=== PATIENT | male | born 1965 | race Caucasian/White ===

== ENCOUNTER 2018-12-01 13:35 | Inpatient (IN) | payer MEDICARE ==
[~2018-12-01] VITALS: Ht 172.7 cm; Wt 65.8 kg
[2018-12-01] MEDS ORDERED: INSU100V28 SQ (14:12)
[2018-12-01] MEDS ORDERED: NITR0.4T48 SL (14:12)
[2018-12-01] MEDS ORDERED: BISA10SU12 RC (14:12)
[2018-12-01] MEDS ORDERED: ARIP5TAB10 PO (14:12)
[2018-12-01] MEDS ORDERED: MAGN400O6 PO (14:12)
[2018-12-01] MEDS ORDERED: ZINC220C8 PO (14:12)
[2018-12-01] MEDS ORDERED: HYDR-3326 PO (14:12)
[2018-12-01] MEDS ORDERED: MULT-213 PO (14:12)
[2018-12-01] MEDS ORDERED: GLIP5TAB13 PO (14:12)
[2018-12-01] MEDS ORDERED: DICLOFENAC 1% GEL TOP (14:12)
[2018-12-01] MEDS ORDERED: PROT946L PO (14:12)
[2018-12-01] MEDS ORDERED: ASCO500C18 PO (14:12)
[2018-12-01] MEDS ORDERED: NA P133E RC (14:12)
[2018-12-01] MEDS ORDERED: ASPI81TA31 PO (14:12)
[2018-12-01] MEDS ORDERED: CARV6.252 PO (14:12)
[2018-12-01] MEDS ORDERED: ATOR40TA PO (14:12)
[2018-12-01 14:44] LABS: BASOPHILS # (AUTO) 0.1 K/uL (0.0-8.0); BASOPHILS % (AUTO) 0.5 % (0.0-2.0); EOSINOPHILS # (AUTO) 0.2 K/uL (0.0-0.7); EOSINOPHILS % (AUTO) 1.8 % (0.0-7.0); HEMOGLOBIN 14.2 g/dL (12.5-16.3); LYMPHOCYTES # (AUTO) 3.1 K/uL (20.0-40.0); LYMPHOCYTES % (AUTO) 29.1 % (20.5-51.5); MEAN CORPUSCULAR HEMOGLOBIN 29.9 uug (23.8-33.4); MEAN CORPUSCULAR HGB CONC 34 g/dL (32.5-36.3); MEAN CORPUSCULAR VOLUME 88.3 fL (73.0-96.2); MONOCYTES # (AUTO) 0.7 K/uL (2.0-10.0); MONOCYTES % (AUTO) 6.4 % (0.0-11.0); NEUTROPHILS # (AUTO) 6.6 K/uL (1.8-8.9); NEUTROPHILS % (AUTO) 62.2 % (38.5-71.5); PLATELET COUNT (AUTO) 192 K/uL (152-348); RED BLOOD CELL COUNT(AUTO) 4.76 MIL/uL (4.06-5.63); WHITE BLOOD COUNT (AUTO) 10.6 K/uL (3.6-10.2)
[2018-12-01 14:52] LABS: POTASSIUM 3.6 mmol/L (3.5-5.1)
[2018-12-01] MEDS ORDERED: BISACODYL 10 MG SUPP.RECT RC PRN (16:00)
[2018-12-01] MEDS ORDERED: ACETAMINOPHEN 325 MG TABLET PO PRN (16:00)
[2018-12-01] MEDS ORDERED: Z GUARD REMEDY PASTE 57 GM TUBE TOP PRN (16:00)
[2018-12-01] MEDS ORDERED: FLEET ENEMA 133 ML BOTTLE RC PRN (16:00)
[2018-12-01] MEDS ORDERED: MAGNESIUM HYDROXIDE 30 ML LIQUID UDC PO PRN (16:00)
[2018-12-01] MEDS ORDERED: NITROGLYCERIN 0.4 MG/TAB BOTTLE SL PRN (16:00)
[2018-12-01] MEDS ORDERED: HYDROCODONE/APAP 5-325MG TABLET PO PRN (16:00)
[2018-12-01 18:00] VITALS: BP 142/69
[2018-12-01] MEDS: glipiZIDE 5 MG TABLET PO SCH (18:19)
[2018-12-01] MEDS: CARVEDILOL 6.25 MG TABLET PO SCH (18:22)
[2018-12-01] MEDS: PROTEIN SUPPLEMENT (PROSTAT) 30 ML LIQUID PO SCH (18:24)
[2018-12-01 19:28] VITALS: BP 140/58
[2018-12-01] MEDS: ATORVASTATIN 40 MG TABLET PO SCH (20:55)
[2018-12-02] VITALS (9 sets, daily range): BP systolic 126–150; BP diastolic 58–82
[2018-12-02] MEDS: HYDROCODONE/APAP 5-325MG TABLET PO PRN ×3 (01:45→17:09)
[2018-12-02 06:31] LABS: BASOPHILS % (AUTO) 0.5 % (0.0-2.0); EOSINOPHILS # (AUTO) 0.3 K/uL (0.0-0.7); EOSINOPHILS % (AUTO) 3.1 % (0.0-7.0); HEMATOCRIT 43.5 % (36.7-47.1); HEMOGLOBIN 14.5 g/dL (12.5-16.3); LYMPHOCYTES # (AUTO) 3.8 K/uL (20.0-40.0); LYMPHOCYTES % (AUTO) 40.3 % (20.5-51.5); MEAN CORPUSCULAR HEMOGLOBIN 29.5 uug (23.8-33.4); MEAN CORPUSCULAR HGB CONC 33 g/dL (32.5-36.3); MEAN CORPUSCULAR VOLUME 88.5 fL (73.0-96.2); MONOCYTES # (AUTO) 0.8 K/uL (2.0-10.0); NEUTROPHILS # (AUTO) 4.6 K/uL (1.8-8.9); NEUTROPHILS % (AUTO) 48.1 % (38.5-71.5); PLATELET COUNT (AUTO) 172 K/uL (152-348); RED BLOOD CELL COUNT(AUTO) 4.92 MIL/uL (4.06-5.63); WHITE BLOOD COUNT (AUTO) 9.5 K/uL (3.6-10.2)
[2018-12-02 06:44] LABS: CREATININE 0.9 mg/dL (0.6-1.3); MAGNESIUM 1.7 mg/dL (1.8-2.4); PHOSPHOROUS 4.2 mg/dL (2.5-4.9); POTASSIUM 3.4 mmol/L (3.5-5.1)
[2018-12-02] MEDS ORDERED: LIDOCAINE HCL 1% 20 ML VIAL ONE (06:58)
[2018-12-02 07:12] LABS: THYROID STIMULATING HORMONE 1.082 mIU/mL (0.358-3.740)
[2018-12-02] MEDS ORDERED: POLYMYXIN B SULFATE 500,000 UNITS, BACITRACIN 50,000 UNITS, NORMAL SALINE 20 ML MC ONE ×3 (07:15)
[2018-12-02] MEDS ORDERED: BUPIVACAINE 0.25% 30 ML VIAL ONE (07:28)
[2018-12-02] MEDS ORDERED: IV NORMAL SALINE 1000 ML BAG IV ONE (07:30)
[2018-12-02] MEDS ORDERED: PROPOFOL 200 MG/20 ML BOTTLE IV ONE (07:30)
[2018-12-02] MEDS ORDERED: LIDOCAINE-MPF 2% 5 ML VIAL MC ONE (07:30)
[2018-12-02] MEDS ORDERED: CEFAZOLIN 1 G VIAL MC ONE (07:30)
[2018-12-02] MEDS ORDERED: MIDAZOLAM HCL 2 MG/2 ML VIAL ONE (07:32)
[2018-12-02] MEDS ORDERED: FENTANYL CITRATE 100 MCG/2 ML AMPUL ONE (07:32)
[2018-12-02] MEDS ORDERED: DEXTROSE 50% 50 ML DISP.SYRIN IV PRN (10:00)
[2018-12-02] MEDS: ZINC SULFATE 220 MG CAPSULE PO SCH (10:01)
[2018-12-02] MEDS: CARVEDILOL 6.25 MG TABLET PO SCH ×2 (10:02→17:11)
[2018-12-02] MEDS: ARIPIPRAZOLE 5 MG TABLET PO SCH (10:02)
[2018-12-02] MEDS: ASPIRIN 81 MG TAB.CHEW PO SCH (10:02)
[2018-12-02] MEDS: PROTEIN SUPPLEMENT (PROSTAT) 30 ML LIQUID PO SCH ×3 (10:02→17:13)
[2018-12-02] MEDS: glipiZIDE 5 MG TABLET PO SCH ×2 (11:09→17:09)
[2018-12-02] MEDS: BLOOD SUGAR DIAGNOSTIC 1 EACH STRIP VI SCH ×3 (11:56→20:17)
[2018-12-02] MEDS: INSULIN REGULAR, HUMAN 300 UNIT/3 ML VIAL SQ PRN ×3 (11:58→20:17)
[2018-12-02] MEDS ORDERED: POTASSIUM CHLORIDE 20 MEQ TAB.PRT.SR PO ONE (16:45)
[2018-12-02] MEDS: METFORMIN HCL 500 MG TABLET PO SCH (17:09)
[2018-12-02] MEDS: CLOTRIMAZOLE 1% CREAM 30 GM TUBE TOP SCH (17:13)
[2018-12-02] MEDS: MAGNESIUM SULFATE/D5W 100 ML IV SCH ×2 (18:04→19:08)
[2018-12-02] MEDS: ATORVASTATIN 40 MG TABLET PO SCH (20:30)
[2018-12-02] MEDS: HYDROMORPHONE 1 MG/1 ML DISP.SYRIN IV PRN ×2 (20:32→20:43)
[2018-12-03] MEDS: HYDROMORPHONE 1 MG/1 ML DISP.SYRIN IV PRN ×2 (01:25→06:45)
[2018-12-03 04:28] VITALS: BP 158/72
[2018-12-03 06:22] LABS: POTASSIUM 3.8 mmol/L (3.5-5.1)
[2018-12-03] MEDS: BLOOD SUGAR DIAGNOSTIC 1 EACH STRIP VI SCH ×4 (06:39→20:23)
[2018-12-03] MEDS: ZINC SULFATE 220 MG CAPSULE PO SCH (08:15)
[2018-12-03] MEDS: ARIPIPRAZOLE 5 MG TABLET PO SCH (08:15)
[2018-12-03] MEDS: HYDROCODONE/APAP 5-325MG TABLET PO PRN ×3 (08:16→21:16)
[2018-12-03] MEDS: METFORMIN HCL 500 MG TABLET PO SCH ×2 (08:16→17:00)
[2018-12-03] MEDS: ASPIRIN 81 MG TAB.CHEW PO SCH (08:16)
[2018-12-03] MEDS: CARVEDILOL 6.25 MG TABLET PO SCH ×2 (08:17→17:03)
[2018-12-03] MEDS: PROTEIN SUPPLEMENT (PROSTAT) 30 ML LIQUID PO SCH ×3 (08:18→17:00)
[2018-12-03] MEDS: CLOTRIMAZOLE 1% CREAM 30 GM TUBE TOP SCH ×2 (08:19→17:04)
[2018-12-03] MEDS: glipiZIDE 5 MG TABLET PO SCH ×2 (08:22→16:55)
[2018-12-03] MEDS: INSULIN REGULAR, HUMAN 300 UNIT/3 ML VIAL SQ PRN ×4 (08:25→20:28)
[2018-12-03] MEDS: ONDANSETRON 4 MG/2 ML VIAL IV PRN (08:39)
[2018-12-03 11:26] VITALS: BP 123/66
[2018-12-03 15:34] VITALS: BP 127/61
[2018-12-03 20:09] VITALS: BP 131/59
[2018-12-03] MEDS: MUPIROCIN 2% OINT 22 GM TUBE NS SCH (20:19)
[2018-12-03] MEDS: ATORVASTATIN 40 MG TABLET PO SCH (20:23)
[2018-12-03] MEDS ORDERED: LORAZEPAM 0.5 MG TABLET PO ONE (21:30)
[2018-12-03] MEDS ORDERED: HALOPERIDOL 0.5 MG TABLET PO SCH (21:30)
[2018-12-04] MEDS: HYDROCODONE/APAP 5-325MG TABLET PO PRN ×4 (01:32→23:23)
[2018-12-04 04:45] VITALS: BP 127/66
[2018-12-04] MEDS: BLOOD SUGAR DIAGNOSTIC 1 EACH STRIP VI SCH ×5 (07:38→23:27)
[2018-12-04] MEDS: ARIPIPRAZOLE 5 MG TABLET PO SCH (08:05)
[2018-12-04] MEDS: ZINC SULFATE 220 MG CAPSULE PO SCH (08:06)
[2018-12-04] MEDS: METFORMIN HCL 500 MG TABLET PO SCH ×2 (08:06→17:33)
[2018-12-04] MEDS: glipiZIDE 5 MG TABLET PO SCH ×2 (08:06→15:43)
[2018-12-04] MEDS: MUPIROCIN 2% OINT 22 GM TUBE NS SCH ×2 (08:07→20:40)
[2018-12-04] MEDS: ASPIRIN 81 MG TAB.CHEW PO SCH (08:10)
[2018-12-04] MEDS: PROTEIN SUPPLEMENT (PROSTAT) 30 ML LIQUID PO SCH ×3 (08:10→17:17)
[2018-12-04] MEDS: CLOTRIMAZOLE 1% CREAM 30 GM TUBE TOP SCH ×2 (08:29→17:17)
[2018-12-04] MEDS: CARVEDILOL 6.25 MG TABLET PO SCH ×2 (08:29→17:33)
[2018-12-04] MEDS: INSULIN REGULAR, HUMAN 300 UNIT/3 ML VIAL SQ PRN ×3 (09:26→20:50)
[2018-12-04 11:36] VITALS: BP 106/53
[2018-12-04 16:00] VITALS: BP 128/58
[2018-12-04] MEDS: ONDANSETRON 4 MG/2 ML VIAL IV PRN (16:00)
[2018-12-04 20:12] VITALS: BP 114/51
[2018-12-04] MEDS: ATORVASTATIN 40 MG TABLET PO SCH (20:40)
[2018-12-05] MEDS ORDERED: BLOOD SUGAR DIAGNOSTIC 1 EACH STRIP VI SCH
[2018-12-05] MEDS ORDERED: INSULIN REGULAR, HUMAN 300 UNIT/3 ML VIAL SQ PRN
[2018-12-05] MEDS ORDERED: IV D5/ 0.9% NACL 1,000 ML IV PRN
[2018-12-05 04:51] VITALS: BP 118/58
[2018-12-05] MEDS: BLOOD SUGAR DIAGNOSTIC 1 EACH STRIP VI SCH ×4 (06:00→21:24)
[2018-12-05] MEDS: glipiZIDE 5 MG TABLET PO SCH ×2 (06:43→16:30)
[2018-12-05] MEDS: PROTEIN SUPPLEMENT (PROSTAT) 30 ML LIQUID PO SCH ×3 (08:00→17:00)
[2018-12-05] MEDS: METFORMIN HCL 500 MG TABLET PO SCH ×2 (08:00→18:00)
[2018-12-05] MEDS: CARVEDILOL 6.25 MG TABLET PO SCH ×2 (08:00→18:00)
[2018-12-05] MEDS: CLOTRIMAZOLE 1% CREAM 30 GM TUBE TOP SCH ×2 (08:12→17:00)
[2018-12-05] MEDS: MUPIROCIN 2% OINT 22 GM TUBE NS SCH ×2 (08:12→21:24)
[2018-12-05] MEDS: HYDROMORPHONE 1 MG/1 ML DISP.SYRIN IV PRN (08:22)
[2018-12-05] MEDS: MULTIVITAMINS,THERAPEUTIC TABLET PO SCH (09:00)
[2018-12-05] MEDS: ZINC SULFATE 220 MG CAPSULE PO SCH (09:00)
[2018-12-05] MEDS: ASPIRIN 81 MG TAB.CHEW PO SCH (09:00)
[2018-12-05] MEDS: ARIPIPRAZOLE 5 MG TABLET PO SCH (09:00)
[2018-12-05] MEDS: ASCORBIC ACID 500 MG TABLET PO SCH (09:00)
[2018-12-05] MEDS ORDERED: DEXTROSE 50% 50 ML DISP.SYRIN IV PRN ×2 (20:30)
[2018-12-05 21:17] VITALS: BP 152/65
[2018-12-05] MEDS: INSULIN REGULAR, HUMAN 300 UNIT/3 ML VIAL SQ PRN (21:23)
[2018-12-05] MEDS: HYDROCODONE/APAP 5-325MG TABLET PO PRN (21:24)
[2018-12-05] MEDS: ATORVASTATIN 40 MG TABLET PO SCH (21:24)
[2018-12-06] MEDS: HYDROCODONE/APAP 5-325MG TABLET PO PRN ×2 (04:09→16:48)
[2018-12-06 04:54] VITALS: BP 117/61
[2018-12-06 06:29] LABS: BASOPHILS % (AUTO) 0.4 % (0.0-2.0); EOSINOPHILS # (AUTO) 0.2 K/uL (0.0-0.7); EOSINOPHILS % (AUTO) 2.1 % (0.0-7.0); HEMATOCRIT 38.9 % (36.7-47.1); HEMOGLOBIN 13.3 g/dL (12.5-16.3); LYMPHOCYTES # (AUTO) 2.9 K/uL (20.0-40.0); LYMPHOCYTES % (AUTO) 29.6 % (20.5-51.5); MEAN CORPUSCULAR HGB CONC 34 g/dL (32.5-36.3); MEAN CORPUSCULAR VOLUME 87.9 fL (73.0-96.2); MONOCYTES # (AUTO) 0.8 K/uL (2.0-10.0); MONOCYTES % (AUTO) 8.5 % (0.0-11.0); NEUTROPHILS # (AUTO) 5.8 K/uL (1.8-8.9); NEUTROPHILS % (AUTO) 59.4 % (38.5-71.5); PLATELET COUNT (AUTO) 199 K/uL (152-348); RED BLOOD CELL COUNT(AUTO) 4.42 MIL/uL (4.06-5.63); WHITE BLOOD COUNT (AUTO) 9.8 K/uL (3.6-10.2)
[2018-12-06] MEDS: BLOOD SUGAR DIAGNOSTIC 1 EACH STRIP VI SCH ×3 (06:35→17:33)
[2018-12-06 06:39] LABS: CREATININE 1.1 mg/dL (0.6-1.3)
[2018-12-06] MEDS: INSULIN REGULAR, HUMAN 300 UNIT/3 ML VIAL SQ PRN ×3 (08:03→17:35)
[2018-12-06] MEDS: ASCORBIC ACID 500 MG TABLET PO SCH (08:10)
[2018-12-06] MEDS: ZINC SULFATE 220 MG CAPSULE PO SCH (08:10)
[2018-12-06] MEDS: ARIPIPRAZOLE 5 MG TABLET PO SCH (08:10)
[2018-12-06] MEDS: CARVEDILOL 6.25 MG TABLET PO SCH ×2 (08:11→17:52)
[2018-12-06] MEDS: METFORMIN HCL 500 MG TABLET PO SCH ×2 (08:11→17:54)
[2018-12-06] MEDS: ASPIRIN 81 MG TAB.CHEW PO SCH (08:11)
[2018-12-06] MEDS: MULTIVITAMINS,THERAPEUTIC TABLET PO SCH (08:11)
[2018-12-06] MEDS: CLOTRIMAZOLE 1% CREAM 30 GM TUBE TOP SCH ×2 (08:22→17:53)
[2018-12-06] MEDS: MUPIROCIN 2% OINT 22 GM TUBE NS SCH (08:23)
[2018-12-06] MEDS: PROTEIN SUPPLEMENT (PROSTAT) 30 ML LIQUID PO SCH ×3 (08:30→17:53)
[2018-12-06] MEDS: glipiZIDE 5 MG TABLET PO SCH ×2 (08:35→17:32)
[2018-12-06 11:50] VITALS: BP 131/69
[2018-12-06 16:00] VITALS: BP_SYST 112; BP_SYST 146; BP_DIAS 68; BP_DIAS 74
[2018-12-06 17:52] VITALS: BP 150/60
== END 2018-12-06 20:49 | DRG 256 ==
LOC: ER 13:35 → MEDSURG3 16:09
PROC: 0Y6P0Z3 Detachment at Right 1st Toe, Low, Open Approach (ICD-10-PCS; principal; 2018-12-02)
PROC: B41DZZZ Fluoroscopy of Aorta and Bilateral Lower Extremity Arteries (ICD-10-PCS; 2018-12-05)
DX: E11.52 Type 2 diabetes mellitus with diabetic peripheral angiopathy with gangrene (principal); I70.261 Atherosclerosis of native arteries of extremities with gangrene, right leg; I69.354 Hemiplegia and hemiparesis following cerebral infarction affecting left non-dominant side; E11.65 Type 2 diabetes mellitus with hyperglycemia; L97.519 Non-pressure chronic ulcer of other part of right foot with unspecified severity; Z79.4 Long term (current) use of insulin; F20.9 Schizophrenia, unspecified; I25.10 Atherosclerotic heart disease of native coronary artery without angina pectoris; Z95.1 Presence of aortocoronary bypass graft; E78.5 Hyperlipidemia, unspecified; M20.11 Hallux valgus (acquired), right foot; Z79.82 Long term (current) use of aspirin; Z87.891 Personal history of nicotine dependence; M62.81 Muscle weakness (generalized); R13.10 Dysphagia, unspecified; Z79.899 Other long term (current) drug therapy; I77.1 Stricture of artery
CPT/HCPCS: 36415; 73630; 73660; 83735; 84100; 84443; 85025; 85610; 85730; A4649; A4663; G0378; J0690; J1170; J1815; J2250; J2405; J3010; J3475; J3490; J7030; J7042

== ENCOUNTER 2019-03-25 04:41 | Inpatient (IN) | payer MEDICARE, MEDICAID ==
[~2019-03-25] VITALS: Ht 172.7 cm; Wt 59.0 kg
[~2019-03-25 04:41] MED LIST: ARIP5TAB10 PO; ASCO500C18 PO; ASPI81TA31 PO; ATOR40TA PO; BISA10SU12 RC; CARV6.252 PO; DICLOFENAC 1% GEL TOP; GLIP5TAB13 PO; HYDR-3326 PO; INSU100V28 SQ; MAGN400O6 PO; MULT-213 PO; NA P133E RC; NITR0.4T48 SL; PROT946L PO; ZINC220C8 PO
[2019-03-25] MEDS ORDERED: DIPH25CA83 PO (05:06)
[2019-03-25] MEDS ORDERED: CLOP75TA15 PO (05:06)
[2019-03-25] MEDS ORDERED: CLON0.1T PO (05:06)
[2019-03-25] MEDS ORDERED: VIT1TABL46 PO (05:06)
[2019-03-25] MEDS ORDERED: INSU100V7 SQ (05:06)
[2019-03-25] MEDS ORDERED: IPRA0.2S6 NEB (05:06)
[2019-03-25] MEDS ORDERED: LORA-114 PO (05:06)
[2019-03-25] MEDS ORDERED: OXYC1TAB PO (05:06)
[2019-03-25] MEDS ORDERED: PROT946L PO (05:06)
[2019-03-25 06:08] LABS: CREATININE 2.7 mg/dL (0.6-1.3); POTASSIUM 4.5 mmol/L (3.5-5.1)
[2019-03-25 06:13] LABS: BILIRUBIN,DIRECT 0.1 mg/dL (0.0-0.2); BILIRUBIN,TOTAL 0.5 mg/dL (0.2-1.0); TOTAL PROTEIN, SERUM 8.1 g/dL (6.4-8.2)
[2019-03-25 06:33] LABS: HEMATOCRIT 47.5 % (36.7-47.1); HEMOGLOBIN 15.4 g/dL (12.5-16.3); LYMPHOCYTES % (AUTO) 19.9 % (20.5-51.5); MEAN CORPUSCULAR HEMOGLOBIN 29.5 uug (23.8-33.4); MEAN CORPUSCULAR HGB CONC 33 g/dL (32.5-36.3); NEUTROPHILS % (AUTO) 69.4 % (38.5-71.5); PLATELET COUNT (AUTO) 156 K/uL (152-348); RED BLOOD CELL COUNT(AUTO) 5.22 MIL/uL (4.06-5.63); WHITE BLOOD COUNT (AUTO) 10.5 K/uL (3.6-10.2)
[2019-03-25 06:34] LABS: BASOPHILS # (AUTO) 0.1 K/uL (0.0-8.0); BASOPHILS % (AUTO) 0.8 % (0.0-2.0); EOSINOPHILS # (AUTO) 0.4 K/uL (0.0-0.7); EOSINOPHILS % (AUTO) 3.9 % (0.0-7.0); LYMPHOCYTES # (AUTO) 2.1 K/uL (20.0-40.0); MONOCYTES # (AUTO) 0.6 K/uL (2.0-10.0); NEUTROPHILS # (AUTO) 7.3 K/uL (1.8-8.9)
[2019-03-25] MEDS ORDERED: KETAMINE HCL 500 MG/10 ML INJ ONE (07:43)
[2019-03-25] MEDS ORDERED: LEVETIRACETAM 500 MG/5 ML VIAL IV ONE ×2 (07:44→07:50)
[2019-03-25] MEDS ORDERED: LEVETIRACETAM IV 1,000 MG in IV DEXTROSE 5% 100 ML IV ONE (07:45)
[2019-03-25] MEDS ORDERED: INSULIN REGULAR, HUMAN 300 UNIT/3 ML VIAL SQ ONE (08:00)
[2019-03-25] MEDS ORDERED: INSULIN REGULAR, HUMAN 300 UNIT/3 ML VIAL ONE (08:04)
[2019-03-25 09:00] VITALS: BP 144/82
[2019-03-25] MEDS ORDERED: LEVETIRACETAM IV 500 MG in IV DEXTROSE 5% 100 ML IV SCH (10:15)
[2019-03-25] MEDS: ASPIRIN EC 81 MG TABLET.DR PO SCH (11:18)
[2019-03-25 11:45] VITALS: BP 137/74
[2019-03-25] MEDS ORDERED: DEXTROSE 50% 50 ML DISP.SYRIN IV PRN (12:00)
[2019-03-25] MEDS ORDERED: CLONIDINE HCL 0.1 MG TABLET PO PRN (12:00)
[2019-03-25] MEDS ORDERED: IV 1/2NS 1000 ML 1,000 ML IV PRN (12:00)
[2019-03-25] MEDS ORDERED: BISACODYL 10 MG SUPP.RECT RC PRN (12:00)
[2019-03-25] MEDS ORDERED: ACETAMINOPHEN 325 MG TABLET PO PRN (12:00)
[2019-03-25] MEDS ORDERED: LORAZEPAM 2 MG/1 ML VIAL IV PRN (12:00)
[2019-03-25] MEDS ORDERED: ONDANSETRON 4 MG/2 ML VIAL IV PRN (12:00)
[2019-03-25] MEDS ORDERED: TEMAZEPAM 15 MG CAPSULE PO PRN (12:00)
[2019-03-25] MEDS ORDERED: MORPHINE SULFATE 2 MG/1 ML DISP.SYRIN IV PRN (12:00)
[2019-03-25] MEDS ORDERED: ALBUTEROL SULFATE 2.5 MG/ 0.5 ML NEBU NEB PRN (12:00)
[2019-03-25] MEDS ORDERED: Medication Not On Formulary EA (Protein Supplement (Promod) 30 ML) PO SCH (13:00)
[2019-03-25] MEDS: BLOOD SUGAR DIAGNOSTIC 1 EACH STRIP VI SCH ×3 (13:04→23:48)
[2019-03-25] MEDS: INSULIN REGULAR, HUMAN 300 UNIT/3 ML VIAL SQ PRN (13:39)
[2019-03-25 15:48] VITALS: BP 129/66
[2019-03-25] MEDS ORDERED: CARVEDILOL 6.25 MG TABLET PO SCH (17:00)
[2019-03-25] MEDS: PROTEIN SUPPLEMENT (PROSTAT) 30 ML LIQUID PO SCH (18:05)
[2019-03-25 20:29] VITALS: BP 131/58
[2019-03-25] MEDS ORDERED: INSULIN GLARGINE,HUM 300 UNITS/3 ML CARTRIDGE SQ SCH (21:00)
[2019-03-25] MEDS ORDERED: ATORVASTATIN 10 MG TABLET PO SCH (21:00)
[2019-03-25] MEDS: DOCUSATE SODIUM 100 MG CAPSULE PO SCH (23:32)
[2019-03-25] MEDS: Z GUARD REMEDY PASTE 57 GM TUBE TOP SCH (23:32)
[2019-03-25] MEDS: ATORVASTATIN 20 MG TABLET PO SCH (23:33)
[2019-03-25] MEDS: LEVETIRACETAM IV 500 MG in IV DEXTROSE 5% 100 ML IV SCH (23:42)
[2019-03-26] MEDS: INSULIN REGULAR, HUMAN 300 UNIT/3 ML VIAL SQ PRN ×5 (00:07→21:52)
[2019-03-26 00:54] VITALS: BP 116/56
[2019-03-26 04:00] VITALS: BP 147/71
[2019-03-26] MEDS: PANTOPRAZOLE SODIUM 40 MG TABLET.DR PO SCH (06:28)
[2019-03-26] MEDS: BLOOD SUGAR DIAGNOSTIC 1 EACH STRIP VI SCH ×4 (06:47→21:22)
[2019-03-26 07:14] LABS: BASOPHILS # (AUTO) 0.1 K/uL (0.0-8.0); BASOPHILS % (AUTO) 0.7 % (0.0-2.0); EOSINOPHILS # (AUTO) 0.5 K/uL (0.0-0.7); EOSINOPHILS % (AUTO) 5.9 % (0.0-7.0); HEMATOCRIT 42.4 % (36.7-47.1); HEMOGLOBIN 13.5 g/dL (12.5-16.3); LYMPHOCYTES # (AUTO) 2.8 K/uL (20.0-40.0); LYMPHOCYTES % (AUTO) 35.6 % (20.5-51.5); MEAN CORPUSCULAR HEMOGLOBIN 29.1 uug (23.8-33.4); MEAN CORPUSCULAR HGB CONC 32 g/dL (32.5-36.3); MEAN CORPUSCULAR VOLUME 91.3 fL (73.0-96.2); MONOCYTES # (AUTO) 0.6 K/uL (2.0-10.0); MONOCYTES % (AUTO) 8.2 % (0.0-11.0); NEUTROPHILS # (AUTO) 3.9 K/uL (1.8-8.9); NEUTROPHILS % (AUTO) 49.6 % (38.5-71.5); PLATELET COUNT (AUTO) 109 K/uL (152-348); RED BLOOD CELL COUNT(AUTO) 4.65 MIL/uL (4.06-5.63); WHITE BLOOD COUNT (AUTO) 7.9 K/uL (3.6-10.2)
[2019-03-26 07:45] LABS: BILIRUBIN,TOTAL 0.5 mg/dL (0.2-1.0); CREATININE 1.9 mg/dL (0.6-1.3); MAGNESIUM 1.9 mg/dL (1.8-2.4); PHOSPHOROUS 3.6 mg/dL (2.5-4.9); POTASSIUM 3.4 mmol/L (3.5-5.1); TOTAL PROTEIN, SERUM 6.6 g/dL (6.4-8.2)
[2019-03-26] MEDS ORDERED: TEMAZEPAM 7.5 MG CAPSULE PO PRN (08:00)
[2019-03-26] MEDS ORDERED: ALBUTEROL SULFATE 2.5 MG/3 ML NEBU NEB PRN (08:00)
[2019-03-26] MEDS: PROTEIN SUPPLEMENT (PROSTAT) 30 ML LIQUID PO SCH ×3 (08:47→17:06)
[2019-03-26] MEDS: CARVEDILOL 6.25 MG TABLET PO SCH ×2 (08:49→17:05)
[2019-03-26] MEDS ORDERED: LORATADINE 10 MG TABLET PO SCH (09:00)
[2019-03-26] MEDS ORDERED: Medication Not On Formulary EA (Vit B Cmplx 3/Fa/Vit C/Biotin (Rena-Vite Rx Tablet) 1 EA PO SCH (09:00)
[2019-03-26] MEDS ORDERED: ASPIRIN EC 81 MG TABLET.DR PO SCH (09:00)
[2019-03-26] MEDS ORDERED: Medication Not On Formulary EA (Ascorbic Acid (Vitamin C) 500 MG) PO SCH (09:00)
[2019-03-26] MEDS: FOLIC ACID/VITAMIN B COMP W-C TABLET PO SCH (09:09)
[2019-03-26] MEDS: ASPIRIN EC 81 MG TABLET.DR PO SCH (09:09)
[2019-03-26] MEDS: ASCORBIC ACID 500 MG TABLET PO SCH (09:09)
[2019-03-26] MEDS: ARIPIPRAZOLE 5 MG TABLET PO SCH (09:09)
[2019-03-26] MEDS: CLOPIDOGREL 75 MG TABLET PO SCH (09:09)
[2019-03-26] MEDS: Z GUARD REMEDY PASTE 57 GM TUBE TOP SCH ×2 (09:10→21:14)
[2019-03-26] MEDS: LEVETIRACETAM IV 500 MG in IV DEXTROSE 5% 100 ML IV SCH ×2 (09:12→20:50)
[2019-03-26 09:17] LABS: THYROID STIMULATING HORMONE 1.798 mIU/mL (0.358-3.740)
[2019-03-26 11:38] VITALS: BP 128/54
[2019-03-26] MEDS: POTASSIUM CHLORIDE 50 ML IV SCH (12:12)
[2019-03-26 14:08] VITALS: BP 150/82
[2019-03-26 15:34] VITALS: BP 134/58
[2019-03-26] MEDS: OXYCODONE/APAP 5-325 MG TABLET PO PRN ×2 (16:39→21:43)
[2019-03-26 20:49] VITALS: BP 134/63
[2019-03-26] MEDS: DOCUSATE SODIUM 100 MG CAPSULE PO SCH (21:13)
[2019-03-26] MEDS: ATORVASTATIN 20 MG TABLET PO SCH (21:13)
[2019-03-26] MEDS: INSULIN GLARGINE,HUM 300 UNITS/3 ML CARTRIDGE SQ SCH (21:25)
[2019-03-27] VITALS (7 sets, daily range): BP systolic 117–135; BP diastolic 52–59
[2019-03-27] MEDS: PANTOPRAZOLE SODIUM 40 MG TABLET.DR PO SCH (06:03)
[2019-03-27] MEDS: BLOOD SUGAR DIAGNOSTIC 1 EACH STRIP VI SCH ×4 (06:31→20:17)
[2019-03-27 06:35] LABS: BASOPHILS # (AUTO) 0.1 K/uL (0.0-8.0); BASOPHILS % (AUTO) 0.5 % (0.0-2.0); EOSINOPHILS # (AUTO) 0.6 K/uL (0.0-0.7); EOSINOPHILS % (AUTO) 5.1 % (0.0-7.0); HEMATOCRIT 40.9 % (36.7-47.1); HEMOGLOBIN 13.1 g/dL (12.5-16.3); LYMPHOCYTES # (AUTO) 2.9 K/uL (20.0-40.0); LYMPHOCYTES % (AUTO) 26.6 % (20.5-51.5); MEAN CORPUSCULAR HEMOGLOBIN 28.9 uug (23.8-33.4); MEAN CORPUSCULAR HGB CONC 32 g/dL (32.5-36.3); MEAN CORPUSCULAR VOLUME 90.4 fL (73.0-96.2); MONOCYTES # (AUTO) 0.9 K/uL (2.0-10.0); MONOCYTES % (AUTO) 8.5 % (0.0-11.0); NEUTROPHILS # (AUTO) 6.4 K/uL (1.8-8.9); NEUTROPHILS % (AUTO) 59.3 % (38.5-71.5); PLATELET COUNT (AUTO) 114 K/uL (152-348); RED BLOOD CELL COUNT(AUTO) 4.53 MIL/uL (4.06-5.63)
[2019-03-27 06:40] LABS: CREATININE 2.7 mg/dL (0.6-1.3); MAGNESIUM 1.6 mg/dL (1.8-2.4); PHOSPHOROUS 4.6 mg/dL (2.5-4.9); POTASSIUM 3.7 mmol/L (3.5-5.1)
[2019-03-27 06:47] LABS: WHITE BLOOD COUNT (AUTO) 10.8 K/uL (3.6-10.2)
[2019-03-27 07:08] LABS: HEPATITIS B SURFACE AB Non Reactive (.); HEPATITIS B SURFACE AG Negative (Negative)
[2019-03-27] MEDS: ASCORBIC ACID 500 MG TABLET PO SCH (08:35)
[2019-03-27] MEDS: ASPIRIN EC 81 MG TABLET.DR PO SCH (08:35)
[2019-03-27] MEDS: FOLIC ACID/VITAMIN B COMP W-C TABLET PO SCH (08:35)
[2019-03-27] MEDS: CLOPIDOGREL 75 MG TABLET PO SCH (08:35)
[2019-03-27] MEDS: ARIPIPRAZOLE 5 MG TABLET PO SCH (08:35)
[2019-03-27] MEDS: PROTEIN SUPPLEMENT (PROSTAT) 30 ML LIQUID PO SCH ×3 (08:36→17:45)
[2019-03-27] MEDS: CARVEDILOL 6.25 MG TABLET PO SCH ×2 (08:36→17:45)
[2019-03-27] MEDS: LEVETIRACETAM IV 500 MG in IV DEXTROSE 5% 100 ML IV SCH (08:36)
[2019-03-27] MEDS: Z GUARD REMEDY PASTE 57 GM TUBE TOP SCH ×2 (08:45→20:27)
[2019-03-27] MEDS: MAGNESIUM SULFATE/D5W 100 ML IV SCH ×2 (11:14→13:31)
[2019-03-27] MEDS: INSULIN REGULAR, HUMAN 300 UNIT/3 ML VIAL SQ PRN ×3 (11:52→20:19)
[2019-03-27] MEDS: ATORVASTATIN 20 MG TABLET PO SCH (20:20)
[2019-03-27] MEDS: DOCUSATE SODIUM 100 MG CAPSULE PO SCH (20:20)
[2019-03-27] MEDS: INSULIN GLARGINE,HUM 300 UNITS/3 ML CARTRIDGE SQ SCH (20:20)
[2019-03-27] MEDS: LEVETIRACETAM 500 MG TABLET PO SCH (20:40)
[2019-03-27] MEDS ORDERED: LEVETIRACETAM 500 MG/5 ML LIQUID UDC PO SCH (21:00)
[2019-03-28 00:14] VITALS: BP 115/72
[2019-03-28 04:50] VITALS: BP 132/66
[2019-03-28] MEDS: PANTOPRAZOLE SODIUM 40 MG TABLET.DR PO SCH (06:30)
[2019-03-28] MEDS: BLOOD SUGAR DIAGNOSTIC 1 EACH STRIP VI SCH ×3 (06:34→16:43)
[2019-03-28 06:43] LABS: BASOPHILS # (AUTO) 0.1 K/uL (0.0-8.0); BASOPHILS % (AUTO) 0.6 % (0.0-2.0); EOSINOPHILS # (AUTO) 0.4 K/uL (0.0-0.7); HEMATOCRIT 43.9 % (36.7-47.1); HEMOGLOBIN 14.1 g/dL (12.5-16.3); LYMPHOCYTES # (AUTO) 2.6 K/uL (20.0-40.0); LYMPHOCYTES % (AUTO) 21.6 % (20.5-51.5); MEAN CORPUSCULAR HEMOGLOBIN 29.1 uug (23.8-33.4); MEAN CORPUSCULAR HGB CONC 32 g/dL (32.5-36.3); MEAN CORPUSCULAR VOLUME 90.2 fL (73.0-96.2); MONOCYTES # (AUTO) 0.9 K/uL (2.0-10.0); MONOCYTES % (AUTO) 7.7 % (0.0-11.0); NEUTROPHILS # (AUTO) 8.1 K/uL (1.8-8.9); NEUTROPHILS % (AUTO) 67.1 % (38.5-71.5); PLATELET COUNT (AUTO) 101 K/uL (152-348); RED BLOOD CELL COUNT(AUTO) 4.86 MIL/uL (4.06-5.63)
[2019-03-28 06:47] LABS: BILIRUBIN,TOTAL 0.4 mg/dL (0.2-1.0); CREATININE 1.9 mg/dL (0.6-1.3); MAGNESIUM 1.7 mg/dL (1.8-2.4); PHOSPHOROUS 3.5 mg/dL (2.5-4.9); POTASSIUM 3.3 mmol/L (3.5-5.1); TOTAL PROTEIN, SERUM 6.6 g/dL (6.4-8.2)
[2019-03-28] MEDS: PROTEIN SUPPLEMENT (PROSTAT) 30 ML LIQUID PO SCH ×3 (08:29→17:24)
[2019-03-28] MEDS: CARVEDILOL 6.25 MG TABLET PO SCH ×2 (08:29→17:24)
[2019-03-28] MEDS: ASPIRIN EC 81 MG TABLET.DR PO SCH (08:30)
[2019-03-28] MEDS: LEVETIRACETAM 500 MG TABLET PO SCH (08:30)
[2019-03-28] MEDS: ARIPIPRAZOLE 5 MG TABLET PO SCH (08:30)
[2019-03-28] MEDS: CLOPIDOGREL 75 MG TABLET PO SCH (08:31)
[2019-03-28] MEDS: ASCORBIC ACID 500 MG TABLET PO SCH (08:31)
[2019-03-28] MEDS: FOLIC ACID/VITAMIN B COMP W-C TABLET PO SCH (08:31)
[2019-03-28] MEDS: Z GUARD REMEDY PASTE 57 GM TUBE TOP SCH (08:32)
[2019-03-28] MEDS ORDERED: LORATADINE 10 MG TABLET PO SCH (09:00)
[2019-03-28] MEDS ORDERED: POTASSIUM CHLORIDE 20 MEQ TAB.PRT.SR PO ONE (09:00)
[2019-03-28] MEDS: MAGNESIUM SULFATE/D5W 100 ML IV SCH ×2 (09:15→10:54)
[2019-03-28 11:16] VITALS: BP 126/53
[2019-03-28] MEDS: INSULIN REGULAR, HUMAN 300 UNIT/3 ML VIAL SQ PRN ×2 (11:48→16:48)
[2019-03-28 15:44] VITALS: BP 126/57
[2019-03-28] MEDS ORDERED: LEVE500T9 PO (16:32)
[2019-03-28] MEDS ORDERED: CLOTRIMAZOLE 1% CREAM 30 GM TUBE TOP SCH (17:00)
[2019-03-28 17:24] VITALS: BP 126/57
== END 2019-03-28 20:10 | DRG 56 ==
LOC: ER 04:44 → TELE3 08:36
PROVIDERS: ADMIT Internal Medicine; ATTEND Internal Medicine
PROC: 5A1D70Z Performance of Urinary Filtration, Intermittent, Less than 6 Hours Per Day (ICD-10-PCS; principal; 2019-03-25)
DX: I69.398 Other sequelae of cerebral infarction (principal); G40.909 Epilepsy, unspecified, not intractable, without status epilepticus; N18.6 End stage renal disease; I50.23 Acute on chronic systolic (congestive) heart failure; I69.354 Hemiplegia and hemiparesis following cerebral infarction affecting left non-dominant side; D68.59 Other primary thrombophilia; I13.2 Hypertensive heart and chronic kidney disease with heart failure and with stage 5 chronic kidney disease, or end stage renal disease; J98.11 Atelectasis; E11.22 Type 2 diabetes mellitus with diabetic chronic kidney disease; Z99.2 Dependence on renal dialysis; Z74.09 Other reduced mobility; R40.2252 Coma scale, best verbal response, oriented, at arrival to emergency department; R40.2142 Coma scale, eyes open, spontaneous, at arrival to emergency department; R40.2362 Coma scale, best motor response, obeys commands, at arrival to emergency department; E83.42 Hypomagnesemia; E78.5 Hyperlipidemia, unspecified; I25.10 Atherosclerotic heart disease of native coronary artery without angina pectoris; Z95.1 Presence of aortocoronary bypass graft; F01.50 Vascular dementia, unspecified severity, without behavioral disturbance, psychotic disturbance, mood disturbance, and anxiety; E11.65 Type 2 diabetes mellitus with hyperglycemia; E11.51 Type 2 diabetes mellitus with diabetic peripheral angiopathy without gangrene; Z79.82 Long term (current) use of aspirin; Z79.51 Long term (current) use of inhaled steroids; F20.9 Schizophrenia, unspecified; Z89.411 Acquired absence of right great toe; S00.83XA Contusion of other part of head, initial encounter; W18.11XA Fall from or off toilet without subsequent striking against object, initial encounter; Y93.E8 Activity, other personal hygiene; Y92.231 Patient bathroom in hospital as the place of occurrence of the external cause; Y99.8 Other external cause status; M50.321 Other cervical disc degeneration at C4-C5 level; E87.6 Hypokalemia; Z79.899 Other long term (current) drug therapy; Z79.4 Long term (current) use of insulin; Z79.02 Long term (current) use of antithrombotics/antiplatelets
CPT/HCPCS: 36415; 70030-TC; 70250; 70450; 71045; 72040; 73020; 83550; 83605; 83690; 83735; 84100; 84443; 85025; 85730; 86706; 87040; 87340; 90937; 93005; 93307; 93880; 95819; A4663; G0378; J1815; J1953; J2060; J2270; J3475; J3480; J3490; J7030; J7050; J7060